=== PATIENT | female | born 1945 | race African-American/Black ===

== ENCOUNTER 2016-04-03 18:45 | Emergency (ER) | payer MEDICARE, OTHER ==
[~2016-04-03] VITALS: Ht 170.2 cm; Wt 83.9 kg
--- NOTE | 2016-04-03 18:55 | NUR ---
pt bibra from assisted living to er bed 17. c/o dental and generalized pain since yesterday. pt was seen and cleared at [facility] earlier today. place don monitor. stable vitals awaiting md sanchez.
[2016-04-03] MEDS ORDERED: IV SET PRIMARY 1 EA INFUS.SET MC ONE (18:59)
[2016-04-03] MEDS ORDERED: IV NS 0.9% 500 ML IV ONE (18:59)
[2016-04-03] MEDS ORDERED: IV NS 0.9% 500 ML BAG IV ONE (19:00)
--- NOTE | 2016-04-03 19:00 | NUR ---
accu check in the field per therapy coordinator - 93 MM/DL
[2016-04-03] MEDS ORDERED: OXYM30SP84 NS (19:26)
[2016-04-03] MEDS ORDERED: ALBU8.5H2 INH (19:26)
[2016-04-03] MEDS ORDERED: AMLO5TAB2 PO (19:26)
[2016-04-03] MEDS ORDERED: TEMA30CA PO (19:26)
[2016-04-03] MEDS ORDERED: LISI-603 PO (19:26)
[2016-04-03] MEDS ORDERED: QUET400T PO (19:26)
[2016-04-03] MEDS ORDERED: FERR325T22 PO (19:26)
[2016-04-03] MEDS ORDERED: FAMO20TA8 PO (19:26)
[2016-04-03] MEDS ORDERED: QUET200T PO (19:26)
[2016-04-03 19:33] LABS: BASOPHILS # (AUTO) 0.1 /CMM (0.0-0.2); EOSINOPHILS # (AUTO) 0.1 /CMM (0.0-0.7); EOSINOPHILS % (AUTO) 2.5 % (0.0-6.0); HEMATOCRIT 35 % (33-45); HEMOGLOBIN 11.3 g/dL (11.5-14.8); LYMPHOCYTES # (AUTO) 1.9 /CMM (0.8-4.8); LYMPHOCYTES % (AUTO) 49.7 % (20.0-44.0); MEAN CORPUSCULAR HEMOGLOBIN 27 PG (26.0-33.0); MEAN CORPUSCULAR HGB CONC 32 g/dl (31.0-36.0); MEAN CORPUSCULAR VOLUME 86 fL (82-100); MONOCYTES # (AUTO) 0.3 /CMM (0.1-1.30); MONOCYTES % (AUTO) 8.4 % (2.0-12.0); NEUTROPHILS # (AUTO) 1.5 /CMM (1.8-8.9); NEUTROPHILS % (AUTO) 37.4 % (43.0-81.0); PLATELET COUNT (AUTO) 242 /CMM (150-450); RDW COEFFICIENT OF VARIATION 15.1 (11.5-15.0); RED BLOOD CELL COUNT(AUTO) 4.13 MIL/uL (4.0-5.2); WHITE BLOOD COUNT (AUTO) 3.9 K/uL (4.3-11.0)
[2016-04-03 20:01] LABS: ALANINE AMINOTRANSFERASE 20 U/L (12-78); ALBUMIN 3.7 g/dL (3.4-5.0); ALCOHOL, BLOOD < 3 mg/dL (0-0); ALKALINE PHOSPHATASE 88 U/L (46-116); ASPARTATE AMINOTRANSFERASE 20 U/L (15-37); BILIRUBIN,TOTAL 0.1 mg/dL (0.2-1.0); CALCIUM, SERUM 9.3 mg/dL (8.5-10.1); CARBON DIOXIDE 26 mmol/L (21-32); CHLORIDE 106 mmol/L (98-107); CREATININE 0.7 mg/dL (0.6-1.3); GLUCOSE 92 mg/dL (74-106); POTASSIUM 3.9 mmol/L (3.5-5.1); SALICYLATE 3.4 mg/dL (2.8-20.0); SODIUM SERUM 142 mmol/L (136-145); TOTAL PROTEIN, SERUM 7.7 g/dL (6.4-8.2); UREA NITROGEN, BLOOD 12 mg/dL (7-18)
[2016-04-03 20:02] LABS: ACETAMINOPHEN 0 ug/ml (10-30)
--- NOTE | 2016-04-03 20:41 | NUR ---
CALLED [facility] FOR PSYCH EVAL.
--- NOTE | 2016-04-03 21:20 | NUR ---
neel rn at bedside for eval.
--- NOTE | 2016-04-03 21:33 | NUR ---
called ankita gonzalez. no answer. left a message at the answering machine informing them that patient is gonna be sent back.
[2016-04-03 21:41] LABS: APPEARANCE,URINE Clear (CLEAR); BILIRUBIN,URINE Negative (NEGATIVE); BLOOD, URINE Negative Ery/uL (NEGATIVE); COLOR,URINE Yellow (YELLOW); KETONES,URINE Negative (NEGATIVE); LEUKOCYTE ESTERASE ,URINE Moderate (NEGATIVE); NITRITE, URINE Negative (NEGATIVE); PH,URINE 6.5 (5.0-8.0); PROTEIN,URINE Negative (NEGATIVE); UGLUCOSE Negative (NEGATIVE); UROBILINOGEN,URINE 0.2 EU/dL (0.2)
[2016-04-03 21:54] LABS: ADD URINE CULTURE YES; BACTERIA,URINE Few /HPF (None Seen); MUCUS,URINE Few /LPF (None Seen); RBC,URINE 0-2 /HPF (0-2); SQUAMOUS EPITHELIAL CELL,UR Few /HPF (None Seen); URINE AMORPHOUS URATE Few /HPF (None Seen); WBC,URINE 21-50 /HPF (0-3)
--- NOTE | 2016-04-03 21:58 | NUR ---
CALLED [facility] FOR TRANSPORTATION GOING BACK TO [facility] ETA [id number]
[2016-04-03 22:34] LABS: CANNABINOID, URINE NEGATIVE (NEGATIVE); PHENCYCLIDINE SCREEN,URINE NEGATIVE (NEGATIVE)
--- NOTE | 2016-04-03 23:30 | NUR ---
PT TRANSPORTED BACK TO ASSISTED LIVING IN STABLE CONDITION. [facility] D/C'D. NO BLEEDING NOTED. DISCHARGE HOME IN STABLE CONDITION.
[2016-04-03 23:31] VITALS: BP 108/66
== END 2016-04-03 23:32 | disposition home or self-care (01) ==
LOC: ER 18:46
DX: F32.9 Major depressive disorder, single episode, unspecified (principal); R82.79 Other abnormal findings on microbiological examination of urine
CPT/HCPCS: 36415; 80048-TC; 80076-TC; 80305; 81000-TC; 85025-TC; 87086-TC; A4606; G0480; G6039-TC; J7040; Z7610